=== PATIENT | female | born 1985 | race Caucasian/White ===

== ENCOUNTER 2021-01-30 08:55 | Outpatient (CLI) | payer BC, SELFPAY ==
--- NOTE | 2021-01-30 09:01 | US_ITS ---
WS: [id number] TRANSABDOMINAL PELVIC AND TRANSVAGINAL PELVIC ULTRASOUND HISTORY: KIDNEY STONE COMPARISON: None available. Uterus: 7.9 cm x 4.9 cm x 3.9 cm. Normal size anteverted uterus. No fibroid or mass. Endometrium: 0.7 cm. Normal homogeneous endometrium. Right ovary: 3.3 cm x 3.6 cm x 2.2 cm. Several small follicles with no solid mass. Collapsing follicl e with mildly crenulated watson. Normal vascularity. Left ovary: 3.0 cm x 2.8 cm x 1.4 cm. Multiple small follicles. No solid mass. Normal vascularity. Very small amount of physiologic free fluid in the cul-de-sac. US/US pelvic with transvaginal IMPRESSION: Normal transvaginal and transabdominal pelvic ultrasound.
== END 2021-01-30 08:56 | disposition home or self-care (01) ==
LOC: US 08:57
PROVIDERS: PCP Family Medicine; Visit Provider Family Medicine
DX: N20.0 Calculus of kidney (principal)
CPT/HCPCS: 76830; 76856

== ENCOUNTER 2021-01-31 07:40 | Outpatient (CLI) | payer BC, SELFPAY ==
--- NOTE | 2021-01-31 | US_ITS ---
WS: [id number] ULTRASOUND ABDOMEN CLINICAL INFORMATION: KIDNEY STONE RT SIDE PAIN COMPARISON: None. FINDINGS: Liver Size: Normal. Craniocaudal length: 15.1 cm. Echogenicity: Normal. Surface nodularity: None. Mass (size and location): None. Bile ducts Intrahepatic ducts: Normal. Common bile duct diameter: 0.4 cm. Gallbladder Normal. Gallstones: None. Gallbladder sludge: None. Gallbladder wall thickening: None. Pericholecystic fluid: None. Sonographic Person sign: Absent. Pancreas Normal as visualized. Normal spleen measuring 11.0 cm Right kidney: Normal. Hydronephrosis: None. Size: 10.4 cm x 5.1 cm x 6.2 cm Left kidney: Normal. Hydronephrosis: None. Size: 10.0 cm x 4.6 cm x 4.9 cm. Abdominal aorta and IVC Visualized portions are normal. Ascites: None. US/US abdomen complete* [id number] IMPRESSION: 1. Normal liver. 2. Normal gallbladder. No cholelithiasis. Normal common bile duct. 3. No hydronephrosis in either kidney. 4. Normal spleen.
== END 2021-01-31 07:41 | disposition home or self-care (01) ==
LOC: US 07:42
PROVIDERS: PCP Family Medicine; Visit Provider Family Medicine
DX: N20.0 Calculus of kidney (principal); R10.9 Unspecified abdominal pain
CPT/HCPCS: 76700

== ENCOUNTER 2021-06-11 08:36 | Outpatient (CLI) | payer BC, SELFPAY ==
--- NOTE | 2021-06-11 08:47 | US_ITS ---
WS: [id number] ULTRASOUND OB LIMITED TECHNIQUE: Limited ultrasound examination of the fetus. CLINICAL INFORMATION: DATING COMPARISON: None. FINDINGS: Small to moderate amount of fluid within the cervix. Cervix appears closed measuring 5.2 CM . Single interuterine gestation. presentation is cephalic Placental location is anterior. Placenta grade: 0. heart rate 136 BPM. Anatomy: BDP: 3.9 cm = 17w5d HC: 14.9 cm = 18w0d AC: 11.9 cm = 17w4d FEMUR LENGTH: 2.5 cm = 17w4d Estimated weight: 203 g., %. EGA by ultrasound: 17w5d HAYLEY by ultrasound: 11/14/2021 US/US OB <= 14 weeks fetus [id number] IMPRESSION: 1. Small moderate amount of fluid within the cervical canal. Cervix does appea r closed measuring 5.2 CM. 2. Single intrauterine gestation with vertex position. Placenta is anterior. 3. Gestational age 17 weeks 5 days with estimated delivery November 14, 2021 4. Normal adnexa.
== END 2021-06-11 08:37 | disposition home or self-care (01) ==
LOC: RAD 08:38
PROVIDERS: PCP Family Medicine; Visit Provider Family Medicine
DX: Z34.82 Encounter for supervision of other normal pregnancy, second trimester (principal); Z3A.17 17 weeks gestation of pregnancy
CPT/HCPCS: 76801

== ENCOUNTER 2021-06-27 13:36 | Outpatient (CLI) | payer BC, SELFPAY ==
--- NOTE | 2021-06-27 13:43 | US_ITS ---
WS: [id number] OBSTETRICAL ULTRASOUND COMPLETE HISTORY: ANATOMY COMPARISON: 06/11/2021 Single intrauterine gestation in variable presentation. Cervix is Closed and normal length. Cervical length is 5.4 cm. Normal amount of amniotic fluid surrounds the fetus. Placenta: Anterior, no previa or abruption. Placenta grade 0 Heart: 138 BPM. Four chambers are identified. RIGHT and LEFT outflow tracts are unremarkable. Anatomy: Intracranial structures and spine are normal. kidneys, stomach and urinary bladd er are unremarkable. Abdominal wall, three-vessel cord and cord insertion site are normal. 4 extremities are present. profile: Unremarkable. Gender: Male. measurements: BPD = 4.8 cm = 20w3d HC = 18.3 cm = 20w5d AC = 15.0 cm = 20w2d FL = 3.4 cm = 20w5d EFW: 358 g. Biometry is internally concordant. AGA by ultrasound: 20w4d HAYLEY by ultrasound: 11/10/2021 US/US OB >= 14 weeks fetus [id number] IMPRESSION: 1. Single intrauterine gestation of 20w4d with an HAYLEY of 11/10/2021. Appropria te growth since the prior ultrasound. 2. Unremarkable screening survey of anatomy.
== END 2021-06-27 13:37 | disposition home or self-care (01) ==
PROVIDERS: PCP Family Medicine; Visit Provider Family Medicine
DX: Z36.89 Encounter for other specified antenatal screening (principal); Z3A.20 20 weeks gestation of pregnancy
CPT/HCPCS: 76805

== ENCOUNTER 2021-11-14 02:47 | Inpatient (IN) | payer BC, SELFPAY ==
[2021-11-14] VITALS (65 sets, daily range): BP systolic 100–143; BP diastolic 53–89; PULSE 66–106; RESP 16–18; TEMP 36.4–36.8; O2SAT 95–100; BMI 30.1
[2021-11-14] MEDS: dextrose 5%-lactated ringers 1,000 ML 125 ML IV ×4 (03:07→19:12)
[2021-11-14] MEDS: ampicillin 2,000 MG in sodium chloride 0.9% (plus) 50 ML 100 MG IV (03:07)
--- NOTE | 2021-11-14 03:17 | PM.HP ---
Providers/Chief Complaint Admitting Physician: Freedom Worthy MD Primary Care Provider: Ankur Spann DO Chief Complaint: LABOR History of Present Illness Hortencia Smyth is a 36 year old at 40.5 weeks by LMP consistent with 17 week US. Her is complicated by 1st TM bleeding, recent gallbladder trouble, Rh- without 28-week RhoGAM, GBS positive. The patient presents to labor and delivery per recommendations of her processing rep. The patient had been laboring at home since approximately 11:30 AM on 11/13/2021 and began to have some worrisome heart tone tracings. The processing rep felt that these were late decelerations, so the patient was brought in for further evaluation. In labor delivery triage, the patient is found to have heart tones in the mid 120s with mild to moderate variability and occasional early decelerations. The patient is valeriy every 2 to 3 minutes. She was 7 to 8 cm upon arrival and is changed to 9 cm rather quickly. SROM took place at 12:17 AM on 11/14/2021. Clear fluid was noted. The patient is GBS positive. The patient is Rh- and has not received a RhoGAM injection. The patient has been seen by myself initially starting at approximately 14 weeks gestation and was seen on 3 occasions. The patient was found to be Rh- and I recommended that she get a RhoGAM injection at 28 weeks gestation and she did not feel that this was necessary and decided to transfer care to a local processing rep. Upon review of the patient's records appears that her blood sugars have been in the normal range. The patient denies any cough, fever, vaginal bleeding, diarrhea, constipation. Medications/Allergies Home Medications Medication Instructions Recorded Confirmed Last Taken Type vitamins-iron fumarate 65 1 tab PO DAILY 11/14/21 11/14/21 11/13/21 History mg iron-folic acid 1 mg tablet Allergies Allergy/AdvReac Type Severity Reaction Status Date / Time No Known Allergies Allergy Verified 11/14/21 03:19 PFSH Acute PFSH: Social History (Updated 11/14/21 @ 03:42 by Freedom Worthy MD) Smoking and tobacco status: never smoked Alcohol intake: never Substance/Drug Use: never Vitals/I&O/Wt Weight last 48 hrs Weight 181 lb Physical Exam Narrative: General: Alert and oriented x3 Cardiac: Regular rate and rhythm without murmurs Lungs: Clear to auscultation bilaterally without wheezes, crackles or rhonchi Abdomen: Soft, non-tender, fundus consistent with gestational age Extremities: Trace edema in the bilateral lower extremities A&P Assessment and plan (1) Positive GBS test: Status: Acute (2) Rh negative status during : Status: Acute (3) Intrauterine : Status: Acute Plan The patient is doing well overall. The patient is requesting natural labor at this time. We will continue with routine OB care at this time. We will watch for signs of any complications. The patient has been started on ampicillin. We will start pushing once she is complete. All questions were answered. The patient and her are in agreement with the current plan of care. Attestations Medical Necessity Statement*: The patient will be here for greater than 2 midnights due to routine intrapartum and management of labor and delivery Coding Level of Care Code Acute Health Club Attendant for Chg Fwd Diagnoses Positive GBS test B95.1 Rh negative status during O26.899; Z67.91 Intrauterine Z34.90
--- NOTE | 2021-11-14 04:13 | PC.NURSE ---
This nurse received a phone call at approximately 0215 from Maria Eugenia stating she was a certified professional coder and was bringing a patient in who had been laboring all day and was starting to not make cervical change. She stated the baby was having late decelerations, was a 1, had not established care with any physician in our area, [facility] [place], pt was stable at this time, FHTs in the 120s, part of the safety plan was to come to the hospital and the pt agreed to at this time. She provided this nurse with information on the pt such as name and . This nurse asked what the pt's last SVE was and the fisher lobster replied I think she is 4 and a half centimeters. She was 6 to 7 cm earlier but she was having the urge to push and her cervix is swelling so I think she is 4 cm now. This nurse asked if her membranes were intact and the fisher lobster stated she SROM'd at around midnight 17. This nurse asked if the pt's fluid was clear and fisher lobster stated Pt fluid was clear. Actually it did have a yellow tint to it but she also peed at the same time. Clinical Tech also stated the pt was group b strep positive and was O - and that they would be arriving at the hospital shortly.
[2021-11-14 06:00] LABS: Basophils # 0.1 10^3/uL (0.0-0.1); Basophils % 0.2 %; Hematocrit 38.2 % (37.0-47.0); Hemoglobin 13.3 g/dL (11.5-15.3); Lymphocytes # 1.3 10^3/uL (0.8-4.8); Lymphocytes % 5.9 %; Mean Corpuscular HGB Conc 34.8 g/dL (30.0-36.0); Mean Corpuscular Hemoglobin 29.7 pg (28.0-34.0); Mean Corpuscular Volume 85.3 fl (81-99); Mean Platelet Volume 11.4 fL (7.4-10.4); Monocytes # 1.2 10^3/uL (0.2-0.9); Monocytes % 5.3 %; Neutrophils # 19.78 10^3/uL (1.8-7.7); Neutrophils % 86.7 %; Nucleated Red Blood Cells % 0 %; Platelet Count 275 10^3/cmm (130-400); Red Blood Count 4.48 10^6/uL (4.1-5.3); Red Cell Distribution Width 14.1 % (12.1-15.1); White Blood Count 22.8 10^3/uL (4.0-10.0)
[2021-11-14] MEDS: ampicillin 1,000 MG in sodium chloride 0.9% (plus) 50 ML 100 MG IV (06:38)
--- NOTE | 2021-11-14 07:01 | P.ANESASSM_ITS ---
Pre-Anesthetic Assessment Height/Weight: Height 1.65 m Weight 82.1 kg Pulse Resp BP Pulse Ox 86 16 140/85 99 11/14/21 06:59 11/14/21 02:45 11/14/21 06:59 11/14/21 06:36 Labor Epidural Familial anesthetic complications: none Social No alcohol and No tobacco Exam alert, oriented x 3 and clear to auscultation bilaterally Airway Submandibular: within normal limits Cervical ROM: within normal limits Mallampati: Class II Dentition: full History/ROS No significant history except as noted Pulmonary None reported CV/HEM None reported None reported Hepatic None reported GI None reported Metabolic None reported Musc/skel None reported Neuropsych None reported Anesthetic Plan ASA status: 2 Anesthesia: Regional (specify below) Other: Labor Epidural Medications/Allergies Home Medications Medication Instructions Recorded Confirmed Last Taken Type vitamins-iron fumarate 65 1 tab PO DAILY 11/14/21 11/14/21 11/13/21 History mg iron-folic acid 1 mg tablet Allergies Allergy/AdvReac Type Severity Reaction Status Date / Time No Known Allergies Allergy Verified 11/14/21 03:19 Current Medications Generic Name Dose Route Start Last Admin Trade Name Freq PRN Reason Stop Dose Admin Dextrose/Lactated Ringer's 1,000 mls @ 125 mls/hr 11/14/21 02:45 11/14/21 06:41 Dextrose 5%-Lactated Ringers IV 125 mls/hr .Q8H NANETTE Administration Ampicillin Sodium 1,000 mg/ 50 mls @ 100 mls/hr 11/14/21 07:00 11/14/21 06:38 Sodium Chloride IV 100 mls/hr Q4H NANETTE Administration Protocol Ropivacaine 200 mg in 100 mls @ 13 mls/hr 11/14/21 05:45 11/14/21 06:17 Naropin Premix EPIDURAL 13 mls/hr .[id number] NANETTE Administration [facility] Anesthesia Social History (Updated 11/14/21 @ 03:42 by Freedom Worthy MD) Smoking and tobacco status: never smoked Alcohol intake: never Substance/Drug Use: never Female Reproductive History : 2 Data Anesthesia : 11/14/21 02:50 Short CBC 11/14/21 Range/Units 02:50 WBC 22.8 H (4.0-10.0) 10^3/uL Hgb 13.3 (11.5-15.3) g/dL Hct 38.2 (37.0-47.0) % MCV 85.3 (81-99) fl Plt Count 275 (130-400) 10^3/cmm Neut % (Auto) 86.7 % Neut # (Auto) 19.78 H (1.8-7.7) 10^3/uL Cardiac Studies: No Data to Display Anesthesia Procedures Epidural Time Out Performed: Yes Consent: from patient, risks and benefits reviewed (discussed increased WBC patient prolonged labor accepts increased risk of infection.) and patient agrees to proceed Lumbar Level: L3-L4 Epidural position: sitting Epidural procedure: sterile prep of area, 1% lidocaine to numb the area, negative for paresthesia passed, test dose given, 1.5% xylocaine 1:200k epi, placed PCEA, no systemic response, sterile dressing applied, L.U.D. no apparent complications and 0.2% Ropiavacaine @ mls/hr (13 ml/hr) Additional Comments: attempted epidural 3x LYNSEY at 5.5cm catheter threaded to 12 cm. 5ml of 2% lidocaine given, 100 mcg fentanyl, 1% lidocaine given via epidural.
--- NOTE | 2021-11-14 10:44 | PM.MISC ---
Miscellaneous Note Note: The patient was found to be approximately 9 cm at 315 this morning. The patient has been valeriy every 3 to 6 minutes on her own. It is felt that she is in the infant is in the OP position. We have tried multiple position changes to try and get the head to turn, however have been unsuccessful. The patient continues to be in the -1 station. The head does not turn with attempts with manual rotation. The patient continues to be 9 cm. I spoke with the patient regarding the concerns for this and that the indication would be to have a section due to arrest of dilation. We discussed the concerns that the may have complications related to delivery with this and increased risk for complications for the mother as well. At this time the patient does not want to go for section and would like to wait 1 more hour. We will recheck in an hour and if there is no significant change plan for section as long as the patient consents. All questions were answered. The patient understands my concerns and recommendation for section now and not to wait.
--- NOTE | 2021-11-14 13:21 | PM.MISC ---
Miscellaneous Note Purpose of Documentation: Pain Note: Patient report of pain with contractions as well as significant pressure. Bupivicaine 0.25% 7 cc bolus with minimal relief. Patient almost complete with possibility of . Opted not to replace because patient is close to pushing or would require spinal for .
--- NOTE | 2021-11-14 13:42 | P.MISC_ITS ---
Miscellaneous Note Note: The patient was rechecked and she has not made any change. She continues to be 9.5 cm and negative 1 station. There is no sign that the 's head is descending. The patient's epidural is no longer functioning well for her. I discussed with the patient the need for section and sh parrish is in agreement at this time to proceed with a primary low transverse section with the indication of arrest of dilation with concern for OP positioning versus cephalopelvic disproportion. We will likely need to do a spinal for anesthesia prior to surgery. All questions were answered. The patient and her are in agreement with the current plan of care.
[2021-11-14] MEDS: metoclopramide 5 mg/mL SDV 2 mL 10 MG IVP (13:50)
[2021-11-14] MEDS: famotidine 20 mg/2 mL INJ IVP (13:50)
[2021-11-14] MEDS: citric acid-sodium citrate 30 mL UDC PO (13:50)
[2021-11-14] MEDS: lactated ringers 1,000 ML 999 ML IV (13:55)
--- NOTE | 2021-11-14 15:54 | P.PCN_ITS ---
PACU note Narrative: VSS, Good respiratory effort, report to LINE CONSTRUCTION ENGINEER Exam: awake
--- NOTE | 2021-11-14 15:54 | PM.PACU ---
PACU note Narrative: VSS, Good respiratory effort, report to WELDER OPERATOR Exam: awake
--- NOTE | 2021-11-14 16:00 | PM.OP ---
Operative Report Date of procedure: November 14, 2021 Pre-op diagnosis: 1. Intrauterine at 40.5 weeks gestation 2. First trimester bleeding 3. Rh- status without 28-week RhoGAM 4. GBS positive 5. Arrest of dilation Post-op diagnosis: 1. Intrauterine status post primary low transverse section at 40.5 weeks gestation 2. First trimester bleeding 3. Rh- status without 28-week RhoGAM 4. GBS positive 5. Arrest of dilation 6. Delivery of healthy infant male weighing 7 pounds 2 ounces with Apgars of 8 and 9 Post-op findings: The infant was in the OP position. Procedure done: Primary low transverse section Specimens removed/disposition: Placenta discarded Surgeon: Freedom Worthy MD Estimated blood loss (mL): 400 Complications: None Brief History: Hortencia Smyth is a 36 year old G2 now P1 status post primary low transverse section at 40.5 weeks by LMP consistent with 17 week US. Her was complicated by 1st TM bleeding, recent gallbladder trouble, Rh- without 28-week RhoGAM, GBS positive. The patient presented to labor and delivery per recommendations of her hospital admitting clerk for concerns of heart tone decelerations. The patient had been laboring at home since approximately 11:30 AM on 11/13/2021 and began to have some worrisome heart tone tracings.? The hospital admitting clerk felt that these were late decelerations, so the patient was brought in for further evaluation.? In labor delivery triage, the patient is found to have heart tones in the mid 120s with mild to moderate variability and occasional early decelerations.? The patient was valeriy every 2 to 3 minutes on her own. She was 7 to 8 cm upon arrival and changed to 9 cm rather quickly.? SROM took place at 12:17 AM on 11/14/2021.? Clear fluid was noted. The patient was GBS positive and started on ampicillin and received 2 doses prior to delivery. The patient is Rh- and refused the RhoGAM injection.? The patient continued to be 9 cm at -1 station from approximately 3:15 AM until the time of delivery. The patient received a laboring epidural that provided adequate anesthesia initially but then wore off. Multiple position changes were done and attempts to rotate the infant out of the OP position were not successful. I had recommended a section earlier, however the patient wanted to continue to try maneuvers for changing infant's position. Finally by approximately 1:30 PM on 11/14/2021 the patient was in agreement to proceed with a section as she had been stuck at 9 cm for approximately 10 hours. Procedure: After informed consent was obtained, the patient was taken to the operating room and the patient was prepped and draped in a normal sterile fashion in the dorsal supine position.? A spinal was placed and adequate anesthesia was obtained.? At 1432 on 11/14/2021 a Pfannenstiel skin incision was made and carried through to the underlying layer of fascia using a scalpel.? The fascial incision was then extended laterally using curved Mayos.? The fascia was then grasped with Naty clamps and the underlying rectus muscles were dissected off taking care to avoid injury to the underlying tissues.? The peritoneum was entered bluntly with one digit.? It was then bluntly.? The bladder blade was placed and the vesicouterine peritoneum was well below the lower uterine segment of the uterus.? The uterine incision was made in the lower uterine segment in a transverse fashion with the scalpel at 1436.? The amniotic membrane was entered bluntly and a small amount of milky colored fluid was noted.? Uterine pressure was placed and the 's head delivered without complication at 1438.? There was no nuchal cord.? The mouth and nose were suctioned.? The rest of the delivered without difficulty.? The took a breath immediately upon delivery.? The cord was clamped and cut and the was handed to the awaiting pediatric nurses.? The placenta was then manually expressed.? The uterus was exteriorized from the abdomen.? A wet lap was used to clear the uterus of clots and debris.? The bladder blade was reinserted and the uterine incision was closed using 0 chromic in a running locking fashion.? The uterus was noted to be moderately firm.? A second layer of the same suture was used in the same manner.? Excellent hemostasis was obtained. Next the posterior cul-de-sac was inspected and was cleared of any blood. The gutters were cleared of any further clots and debris and the uterine incision was again inspected and hemostasis was noted.? The subfascial tissue was inspected for hemostasis and the peritoneum was re-approximated using 2-0 plain in a running fashion.? The fascia was then re-approximated using 0 Vicryl in a running fashion.? The subcutaneous tissue was inspected for hemostasis.? Barbara's fascia was then re-approximated using 3-0 plain in a running fashion.? Good hemostasis was noted.? The subcutaneous tissue was then re-approximated using a subcuticular stitch.? The patient tolerated the procedure well and was recovered in stable condition.? Estimated blood loss was 400 mL. Urine in the Bello catheter was clear. The patient was taken to recovery in good condition.
[2021-11-14] MEDS: ketorolac 30 mg/mL INJ IVP (22:06)
[2021-11-15] VITALS (8 sets, daily range): BP systolic 99–133; BP diastolic 61–74; PULSE 74–109; RESP 16–18; TEMP 36.6–37.1; O2SAT 96–98
[2021-11-15 04:08] LABS: Hematocrit 32.2 % (37.0-47.0); Hemoglobin 10.8 g/dL (11.5-15.3); Mean Corpuscular HGB Conc 33.5 g/dL (30.0-36.0); Mean Corpuscular Hemoglobin 29.3 pg (28.0-34.0); Mean Corpuscular Volume 87.3 fl (81-99); Mean Platelet Volume 10.7 fL (7.4-10.4); Platelet Count 223 10^3/cmm (130-400); Red Blood Count 3.69 10^6/uL (4.1-5.3); Red Cell Distribution Width 14.5 % (12.1-15.1); White Blood Count 15.4 10^3/uL (4.0-10.0)
[2021-11-15] MEDS: ketorolac 30 mg/mL INJ IVP (04:17)
--- NOTE | 2021-11-15 07:22 | ANE.PACU2 ---
Inpatient post-anesthesia follow up: Airway intact: Yes Vital signs: Temperature 98.0 F Pulse Rate 86 Respiratory Rate 16 Blood Pressure 109/64 Pulse Oximetry 97 Oxygen Delivery Me thod Room Air Oxygen Flow Rate Fraction of Inspir ed Oxygen Hydration adequate: Yes Nausea and vomiting: No Pain level: 2 Mental status: Baseline
[2021-11-15] MEDS: prenatal vitamin Capsule 1 CAP PO (08:45)
[2021-11-15] MEDS: ferrous sulfate EC 325 mg Tablet PO ×2 (08:45→17:48)
[2021-11-15] MEDS: docusate sodium 100 mg Capsule PO ×2 (08:46→17:48)
[2021-11-15] MEDS: oxyCODONE-APAP 5-325 mg Tablet PO ×3 (11:51→22:17)
--- NOTE | 2021-11-15 13:58 | P.PN_ITS ---
Subjective Subjective: The patient is doing well at this time. She is ambulating, voiding, passing gas and tolerating liquids. She will start foods soon. She is having pain related to the surgery, however it is well controlled. Vitals/I&O/Wt Last Vital Signs Temp 98.8 F 11/15/21 10:32 Pulse 81 11/15/21 10:32 Resp 16 11/15/21 11:51 BP 99/61 11/15/21 10:32 Pulse Ox 97 11/15/21 10:32 11/14/21 11/15/21 11/15/21 22:59 06:59 14:59 Intake Total 1799 / 2011 Output Total 900 / 3000 400 / 3400 200 / 200 Balance 900 / -988 -400 / -1388 -200 / -200 Weight last 48 hrs Weight 181 lb Physical Exam Narrative: General: Alert and oriented x3 Cardiac: Regular rate and rhythm without murmurs Lungs: Clear to auscultation bilaterally without wheezes, crackles or rhonchi Abdomen: Soft, mild to moderate tenderness over the uterus. The uterus is firm and 2 cm below the umbilicus. Incision is clean and dry without signs of i nfection or dehiscence. Extremities: Trace edema in the bilateral lower extremities Urinary Catheter Management: Bello: Cath Placed During This Visit: yes, but has since been removed by the nurse Reason for Continuing Indwelling Catheter: Decision to DC Catheter Urinary Catheter Date of Insertion: 11/14/21 Urinary Catheter Time of Insertion: 08:45 Date Urinary Catheter Removed: 11/15/21 Time Urinary Catheter Discontinued: 07:40 Data : 11/15/21 03:53 A&P Assessment and plan (1) delivery delivered: Status: Acute Plan The patient is doing well at this time. She is showing no signs of complications. Continue with routine care. I discussed routine post care with her. We will plan for discharge home tomorrow if she was feeling well. All questions were answered. Attestations Medical Necessity Statement*: The patient will be here for greater than 2 midnights due to routine intrapartum and management after section. Coding Level of Care Code Acute Ham Rolling Machine Operator for Eugene George Diagnoses delivery delivered O82
[2021-11-15] MEDS: ibuprofen 800 mg tablet PO (20:41)
[2021-11-16 02:11] VITALS: RESP 15
[2021-11-16] MEDS: oxyCODONE-APAP 5-325 mg Tablet PO (02:11)
[2021-11-16 04:59] VITALS: BP 104/70; PULSE 72; RESP 15; TEMP 36.4; O2SAT 97
--- NOTE | 2021-11-16 08:01 | PM.PN ---
Subjective Subjective: The patient is doing well overall, however is continuing to have pain related to her section. She is moving around the room mildly. She has not been able to tolerate much by mouth up to this point. She has a lot of bloating still. Otherwise her bleeding is decreasing well. She is ambulating and voiding. Vitals/I&O/Wt Last Vital Signs Temp 98.4 F 11/16/21 21:00 Pulse 77 11/16/21 21:00 Resp 18 11/17/21 00:25 BP 121/82 11/16/21 21:00 Pulse Ox 97 11/16/21 04:59 Physical Exam Narrative: General: Alert and oriented x3 Cardiac: Regular rate and rhythm without murmurs Lungs: Clear to auscultation bilaterally without wheezes, crackles or rhonchi Abdomen: Soft, mild to moderate tenderness over the uterus.? The uterus is firm and 2 cm below the umbilicus.? Incision is clean and dry without signs of infection or dehiscence. Extremities: Trace edema in the bilateral lower extremities Urinary Catheter Management: Bello: Cath Placed During This Visit: yes, but has since been removed by the nurse Reason for Continuing Indwelling Catheter: Decision to DC Catheter Urinary Catheter Date of Insertion: 11/14/21 Urinary Catheter Time of Insertion: 08:45 Date Urinary Catheter Removed: 11/15/21 Time Urinary Catheter Discontinued: 07:40 Data : 11/15/21 03:53 A&P Assessment and plan (1) delivery delivered: Status: Acute Plan The patient is having troubles with eating so far. We will plan to keep her throughout the day and if she is improving this afternoon plan for discharge at that time, however if not improving sufficiently we will wait until tomorrow. Otherwise the patient is doing well. Continue with routine post care. Attestations Medical Necessity Statement*: The patient will be here for greater than 2 midnights due to routine intrapartum and management of labor and delivery. Coding Level of Care Code Acute Supervisor Scenic Arts for Eugene George Diagnoses delivery delivered O82
[2021-11-16] MEDS: prenatal vitamin Capsule 1 CAP PO (09:23)
[2021-11-16] MEDS: ferrous sulfate EC 325 mg Tablet PO (09:23)
[2021-11-16] MEDS: docusate sodium 100 mg Capsule PO (09:24)
[2021-11-16] MEDS: ibuprofen 800 mg tablet PO ×3 (09:24→21:17)
[2021-11-16 12:17] VITALS: BP 121/72; PULSE 71; RESP 16; TEMP 36.8
[2021-11-16 17:54] VITALS: BP 123/72; RESP 16; TEMP 36.5
[2021-11-16 21:00] VITALS: BP 121/82; PULSE 77; RESP 18; TEMP 36.9
[2021-11-17 00:25] VITALS: RESP 18
[2021-11-17] MEDS: oxyCODONE-APAP 5-325 mg Tablet PO ×2 (00:25→11:50)
[2021-11-17 04:00] VITALS: BP 115/72; PULSE 64; RESP 18; TEMP 36.4
--- NOTE | 2021-11-17 08:04 | P.DS_ITS ---
Discharge Providers Date of Admission: 11/14/21 02:47 Date of Discharge: November 17, 2021 Attending Provider at Admission: Freedom Worthy MD Attending Provider at Discharge: Freedom Worthy MD Primary Care Provider: Ankur Spann DO Diagnoses at Discharge Discharge Diagnosis (1) delivery delivered: Status: Acute Other Information Additional DC diagnoses/information: 1.? Intrauterine status post primary low transverse section at 40.5 weeks gestation 2.? First trimester bleeding 3.? Rh- status without 28-week RhoGAM 4.? GBS positive 5.? Arrest of dilation 6.? Delivery of healthy infant male weighing 7 pounds 2 ounces with Apgars of 8 and 9 Reason for Visit Reason for Visit: LABOR Brief History: Hortencia Smyth is a 36 year old G2 now P1 status post primary low transverse section at 40.5 weeks by LMP consistent with 17 week US. Her was complicated by 1st TM bleeding, recent gallbladder trouble, Rh- without 28- week RhoGAM, GBS positive. Hospital Course Hospital Course The patient presented to labor and delivery per recommendations of her ticket sorter for concerns of heart tone decelerations.? The patient had been laboring at home since approximately 11:30 AM on 11/13/2021 and began to have some worrisome heart tone tracings.? The ticket sorter felt that these were late decelerations, so the patient was brought in for further evaluation.? In labor delivery triage, the patient is found to have heart tones in the mid 120s with mild to moderate variability and occasional early decelerations.? The patient was valeriy every 2 to 3 minutes on her own. She was 7 to 8 cm upon arrival and changed to 9 cm rather quickly.? SROM took place at 12:17 AM on 11/14/2021.? Clear fluid was noted.? The patient was GBS positive and started on ampicillin and received 2 doses prior to delivery. The patient is Rh- and refused the RhoGAM injection.? The patient continued to be 9 cm at -1 station from approximately 3:15 AM until the time of delivery.? The patient received a laboring epidural that provided adequate anesthesia initially but then wore off.? Multiple position changes were done and attempts to rotate the infant out of the OP position were not successful.? I had recommended a section earlier, however the patient wanted to continue to try maneuvers for changing infant's position.? Finally by approximately 1:30 PM on 11/14/2021 the patient was in agreement to proceed with a section as she had been stuck at 9 cm for approximately 10 hours. The patient had a primary low transverse section and the infant was found to be in the OP position. She had no complications after delivery and her bleeding is decreasing well. Her pain is well controlled with medications. She is ambulating, voiding, passing gas and tolerating food by mouth. Routine post care instructions were discussed with the patient and all questions were answered. The patient is in agreement with discharge home at this time. Physical Exam Narrative: General: Alert and oriented x3 Cardiac: Regular rate and rhythm without murmurs Lungs: Clear to auscultation bilaterally without wheezes, crackles or rhonchi Abdomen: Soft, mild to moderate tenderness over the uterus.? The uterus is firm and 2 cm below the umbilicus.? Incision is clean and dry without signs of infection or dehiscence. Extremities: +1 pitting edema in the bilateral lower extremities Urinary Catheter Management: Bello: Cath Placed During This Visit: yes, but has since been removed by the nurse Reason for Continuing Indwelling Catheter: Decision to DC Catheter Urinary Catheter Date of Insertion: 11/14/21 Urinary Catheter Time of Insertion: 08:45 Date Urinary Catheter Removed: 11/15/21 Time Urinary Catheter Discontinued: 07:40 Discharge Data Studies Completed and Pending Laboratory Results WBC 15.4 10^3/uL (4.0-10.0) H 11/15/21 03:53 RBC 3.69 10^6/uL (4.1-5.3) L 11/15/21 03:53 Hgb 10.8 g/dL (11.5-15.3) L 11/15/21 03:53 Hct 32.2 % (37.0-47.0) L 11/15/21 03:53 MCV 87.3 fl (81-99) 11/15/21 03:53 MCH 29.3 pg (28.0-34.0) 11/15/21 03:53 MCHC 33.5 g/dL (30.0-36.0) 11/15/21 03:53 RDW 14.5 % (12.1-15.1) 11/15/21 03:53 Plt Count 223 10^3/cmm (130-400) 11/15/21 03:53 MPV 10.7 fL (7.4-10.4) H 11/15/21 03:53 Neut % (Auto) 86.7 % 11/14/21 02:50 Lymph % (Auto) 5.9 % 11/14/21 02:50 [place] % (Auto) 5.3 % 11/14/21 02:50 Eos % (Auto) 0.0 % 11/14/21 02:50 Baso % (Auto) 0.2 % 11/14/21 02:50 Neut # (Auto) 19.78 10^3/uL (1.8-7.7) H 11/14/21 02:50 Lymph # (Auto) 1.3 10^3/uL (0.8-4.8) 11/14/21 02:50 [place] # (Auto) 1.2 10^3/uL (0.2-0.9) H 11/14/21 02:50 Eos # (Auto) 0.0 10^3/uL (0.0-0.8) 11/14/21 02:50 Baso # (Auto) 0.1 10^3/uL (0.0-0.1) 11/14/21 02:50 Nucleated RBC % (auto) 0 % 11/14/21 02:50 Nucleated RBCs # 0.0 /100WBC 11/14/21 02:50 Vitals Last Vital Signs Temp 98.4 F 11/16/21 21:00 Pulse 77 11/16/21 21:00 Resp 18 11/17/21 00:25 BP 121/82 11/16/21 21:00 Pulse Ox 97 11/16/21 04:59 Discharge Plan Discharge Patient Disposition: Home Condition: Good Prescriptions: New ibuprofen 800 mg Tablet 800 mg PO TID Qty: 60 0RF oxycodone-acetaminophen 5-325 mg Tablet 1 tab PO Q6H PRN (Reason: Moderate To Severe Pain) Qty: 20 0RF ferrous sulfate 325 mg (65 mg iron) Tablet,Delayed Release (Dr/Ec) 325 mg PO BIDWM Qty: 30 0RF Continued vit-iron fum-folic ac 65 mg iron- 1 mg Tablet 1 tab PO DAILY 0RF Discharge Orders: Discharge Order (Routine); Ordered 11/17/21 Ordered By: Freedom Worthy Referrals: Freedom Worthy MD [Physician] - 2 weeks Discharge Diet: Regular Discharge Activity: Limit activity as instructed Patient Instructions: Depression (DC), Bleeding (DC), Preeclampsia and Eclampsia After Delivery (GEN), OB [facility], OB Discharge Report, OB Food/Drug Interaction Guide, OB Care at Home, Opioid Safety, OB Home Care, OB [facility], Abnormal Bleeding Activity Restrictions/Additional Instructions: Do not lift anything heavier than your in the car seat for the first few weeks, then gradually increase. If you have any concern for infection in your incision site, please return for immediate evaluation. Discharge Attestations Time Spent in Discharge Care*: greater than 30 min Quality Metrics Clinical Quality Measures [ No reported AMI, CVA or VTE this stay] Coding Level of Care Code Acute Chg FW DC note Diagnoses delivery delivered O82
[2021-11-17] MEDS: docusate sodium 100 mg Capsule PO (08:38)
[2021-11-17] MEDS: prenatal vitamin Capsule 1 CAP PO (08:38)
[2021-11-17] MEDS: ferrous sulfate EC 325 mg Tablet PO (08:39)
[2021-11-17] MEDS: ibuprofen 800 mg tablet PO (08:39)
[2021-11-17 09:55] VITALS: BP 116/79; PULSE 83; RESP 16; TEMP 36.6
[2021-11-17 11:50] VITALS: RESP 17
[2021-11-17 12:24] VITALS: BP 118/74; PULSE 78; RESP 17; TEMP 36.7
[2021-11-17 12:55] VITALS: BP 118/74; PULSE 78; RESP 17; TEMP 36.7
== END 2021-11-17 12:55 | disposition home or self-care (01) | DRG 788 ==
LOC: OPOB 02:47 → OBGYN 02:47
PROVIDERS: Admitting Provider Family Medicine; PCP Family Medicine; Visit Provider Family Medicine
PROC: 10D00Z1 Extraction of Products of Conception, Low, Open Approach (ICD-10-PCS; CPT 59514; principal; 2021-11-14 14:10)
DX: O76 Abnormality in fetal heart rate and rhythm complicating labor and delivery (principal); O62.0 Primary inadequate contractions; Z3A.40 40 weeks gestation of pregnancy; Z37.0 Single live birth; O48.0 Post-term pregnancy; O32.8XX0 Maternal care for other malpresentation of fetus, not applicable or unspecified; O99.824 Streptococcus B carrier state complicating childbirth; O26.893 Other specified pregnancy related conditions, third trimester; Z67.91 Unspecified blood type, Rh negative
CPT/HCPCS: 36415; 51702; 59025; 85025; 85027; 99211; J0290; J0690; J1885; J2274; J2765; J2795; J3010; J3490; J7030